=== PATIENT | female | born 1965 | race Caucasian/White ===

== ENCOUNTER 2019-04-27 15:30 | Observation (INO) ==
[2019-04-27 16:11] LABS: Basophils % 0.4 %; Eosinophils # 0.2 K/mcL (0.0-0.6); Hematocrit 44.1 % (35.3-44.9); Immature Granulocytes % 0.3 % (0-4); Lymphocytes # 2.3 K/mcL (0.6-4.6); Lymphocytes % 23.7 %; Mean Corpuscular Hemoglobin 30.5 pg (28.0-33.3); Mean Corpuscular Volume 89.8 fL (83.0-100.0); Mean Platelet Volume 10.7 fL (9.4-12.4); Monocytes # 0.6 K/mcL (0.0-1.3); Monocytes % 6.4 %; Neutrophils # 6.6 K/mcL (1.6-8.9); Platelet Count 240 K/mcL (140-400); Red Blood Count 4.91 M/mcL (3.82-4.97); Red Cell Distribution Width 12.5 % (11.5-14.5); Segmented Neutrophils % 67.2 %; White Blood Count 9.9 K/mcL (4.3-11.1)
--- NOTE | 2019-04-27 16:15 | Emergency Department Note ---
Disposition Clinical Impression: Chest pain Disposition: Admitted As Inpatient Time of Disposition: 17:48 Chest Pain HPI - General Chief Complaint: ED Chest Pain Stated Complaint: chest pain Time Seen by Provider: 04/27/19 15:32 Source: patient, EMS Limitations: no limitations Vital Signs Reviewed: Yes Nursing Notes Reviewed: Yes - History of Present Illness HPI Narrative: Ms. Raines is a 53 yo F with PMH of HTN, CAD, and Takosubo cardiomyopathy, presented the emergency department with retrosternal, left-sided chest pain that is radiating to her jaw and left arm. This patient pain began nearly 2 hours prior to arrival. She states it went to another facility, and they gave her multiple baby aspirins. Associated symptoms include diaphoresis. She was able to ambulate. She does admit to numbness in the left side of her face, and subjective numbness in her arms bilaterally. She denies lightheadedness, dyspnea, cough, abdominal pain, nausea, vomiting, dysuria, or LE edema. She does admit to a history of Takosubo cardiomyopathy and follows up with her cardiology team. Severity scale (1-10): 5 - Related Data Home Medications Medication Instructions Recorded Confirmed Metoprolol [Lopressor] 25 mg PO HS 08/07/16 04/27/19 Multivitamin [Multi-Day Vitamins] 1 each PO DAILY 08/07/16 04/27/19 amLODIPine [Norvasc] 10 mg PO DAILY 08/07/16 04/27/19 hydroCHLOROthiazide 25 mg PO DAILY 08/07/16 04/27/19 [Hydrochlorothiazide] Albuterol Sulfate [Ventolin Hfa] 2 puff IH BID PRN 08/10/16 04/27/19 Benazepril HCl [Lotensin] 20 mg PO DAILY 04/27/19 04/27/19 Cholecalciferol (D-3) [Vitamin D] 1,000 unit PO DAILY 04/27/19 04/27/19 Allergies Allergy/AdvReac Type Severity Reaction Status Date / Time Bee Pollen Allergy Rash Verified 04/22/18 12:37 diphenhydramine Allergy Rash Verified 04/22/18 12:37 [From Benadryl] Erythromycin Base Allergy Rash Verified 04/22/18 12:37 Penicillins Allergy Rash Verified 04/22/18 12:37 Review of Systems: Admits to chest pain, facial and arm numbness, and diaphoresis. Denies lightheadedness, dyspnea, cough, abdominal pain, nausea, vomiting, dysuria, or LE edema. Chest Pain PMH - Past Medical History Medical history: Reports: COPD, coronary artery disease, hypertension, kacy cardial infarction, other Surgical history: Reports: appendectomy, , orthopedic, other (Carpal tunnel), other (Tonsillectomy, lymph node excision, bladder suspension, cardiac catheterization in 2011 with minimal disease) Psychiatric history: Reports: no psych history - Social History Smoking Status: Current every day smoker Alcohol use: Reports: none Drug use: Reports: none Physical Exam GEN: Mild distress, A&O3 HEAD: Atraumatic, normocephalic EYES: Pupils symmetric, sclera white, conjunctiva pink HEART: RRR, normal S1 and S2, no murmurs LUNGS: Clear to auscultation bilaterally, no wheezes, rhonchi, or crackles ABD: Soft, nontender, nondistended, bowel sounds present EXT: No edema noted, pulses 2/4 NEURO: Decreased sensation to left side of face, cooperative with exam, strength equal and symmetric in UE and LE - General Limitations: no limitations Course Vital Signs Temperature 98.2 F 04/27/19 15:35 Pulse Rate 101 04/27/19 15:35 Respiratory Rate 18 04/27/19 15:35 Blood Pressure 176/112 04/27/19 15:35 O2 Sat by Pulse Oximetry 95 04/27/19 15:35 Temperature 98.2 F 04/27/19 15:35 Pulse Rate 101 04/27/19 15:35 Respiratory Rate 18 04/27/19 15:35 Blood Pressure 176/112 04/27/19 15:35 O2 Sat by Pulse Oximetry 97 04/27/19 16:06 Oxygen Delivery Oxygen Delivery Room Air Chest Pain - [facility] Narrative Medical decision making narrative: 53-year-old female with history of cardiac disease presented with chest pain. EKG shows sinus tachycardia, heart rate 101, one PVC, and slight ST depressions in V5 and V6. Troponin is negative. CBC and BMP are normal. Chest x-ray is without any acute findings. Head CT negative. D-dimer was elevated. CTA shows no pulmonary embolism, but does comment on 4.1 cm descending aortic ectasia. Heart score = 4. With her concerning symptoms and history, she will be admitted for continuing observation and management of her chest pain. Discussed the case with Dr. Rice who is accepting of the admission. - Lab Data Lab results reviewed: Yes I reviewed the patient's lab results. Result diagrams: 04/27/19 15:56 04/27/19 15:56 Lab Results 04/27/19 04/27/19 04/27/19 Range/Units 15:56 15:56 15:56 WBC 9.9 (4.3-11.1) K/mcL RBC 4.91 (3.82-4.97) M/mcL Hgb 15.0 (11.5-15.4) g/dL Hct 44.1 (35.3-44.9) % MCV 89.8 (83.0-100.0) fL MCH 30.5 (28.0-33.3) pg MCHC 34.0 (31.6-35.5) g/dL RDW 12.5 (11.5-14.5) % Plt Count 240 (140-400) K/mcL MPV 10.7 (9.4-12.4) fL Immature Gran % 0.3 (0-4) % Seg Neutrophils % 67.2 % Lymphocytes % 23.7 % Monocytes % 6.4 % Eosinophils % 2.0 % Basophils % 0.4 % Neutrophils # 6.6 (1.6-8.9) K/mcL Lymphocytes # 2.3 (0.6-4.6) K/mcL Monocytes # 0.6 (0.0-1.3) K/mcL Eosinophils # 0.2 (0.0-0.6) K/mcL Basophils # 0.0 (0.0-0.2) K/mcL PT 12.1 (9.4-12.1) Seconds INR 1.1 APTT 31.3 (26.0-36.0) Seconds D-Dimer 1070 H (0-500) ng/mLFEU Sodium 138 (136-145) mEq/L Potassium 3.9 (3.5-5.1) mEq/L Chloride 104 (98-107) mEq/L Carbon Dioxide 26 (23-29) mEq/L BUN 10 (6-20) mg/dL Creatinine 0.67 (0.60-1.20) mg/dL Est GFR ( Amer) > 60 (> 60) Est GFR (Non-Af Amer) > 60 (> 60) BUN/Creatinine Ratio 15 (6-26) Glucose 348 H (70-105) mg/dL Calculated Osmolality 299 (280-300) Calcium 9.3 (8.6-10.3) mg/dL Troponin I < 0.03 (< 0.04) ng/mL - Radiology Data Radiology results reviewed: Yes I reviewed the patient's radiology results. Heart Score - Score History: Moderately Suspicious EKG: Non Specific repolarisation Disturbance Age: 45-65 Risk Factors: 1-2 risk factors Troponin: Less than normal limit HEART Score Total: 4 Attestation Statement - Attestation Attestation: I, Colin Hartley, examined this patient and my medical decision-making was reviewed with the [employer]/PA/Advanced Practice Nurse/Resident Physician. I agree with the documented findings, disposition and treatment plan as described except to the extent set forth below. 53-year-old male presents emergency Department with concerns of chest pain. Patient states pain is in her left chest and radiates to her left jaw and left upper extremity. Patient reports a history of takasubo cardiomyopathy. Patient denies syncopal event. Initial troponin was negative. EKG did not show evidence of STEMI.I reviewed the EKG with the resident and agree with the interpretation. CTA of the chest did not show evidence of acute PE however did show aortic root ectasia. Patient will be admitted to the hospitalist for further care and evaluation.
[2019-04-27 16:19] LABS: INR 1.1; Prothrombin Time 12.1 Seconds (9.4-12.1)
[2019-04-27 16:22] LABS: Activated Partial Thrombo Time 31.3 Seconds (26.0-36.0)
[2019-04-27 16:32] LABS: BUN/Creatinine Ratio 15 (6-26); Blood Urea Nitrogen 10 mg/dL (6-20); Calcium 9.3 mg/dL (8.6-10.3); Carbon Dioxide 26 mEq/L (23-29); Chloride 104 mEq/L (98-107); Glucose 348 mg/dL (70-105); Osmolality,Calculated 299 (280-300); Potassium 3.9 mEq/L (3.5-5.1); Sodium 138 mEq/L (136-145); eGFR For African Americans > 60 (> 60); eGFR For Non-African Americans > 60 (> 60)
[2019-04-27 16:33] LABS: Troponin I < 0.03 ng/mL (< 0.04)
[2019-04-27] MEDS ORDERED: Isovue-370 500 ML BOTTLE IVP ONE (16:57)
[2019-04-27] MEDS ORDERED: Acetaminophen 325 MG TABLET PO PRN (18:10)
[2019-04-27] MEDS ORDERED: MOM Conc 10 ML UD.LIQ PO PRN (18:10)
[2019-04-27] MEDS ORDERED: Naloxone 0.4 MG/ML INJ IVP PRN (18:10)
[2019-04-27] MEDS ORDERED: traMADol 50 MG TABLET PO PRN (18:10)
[2019-04-27] MEDS ORDERED: Mag Hydrox/Al Hydrox/Simeth 30 ML UDC PO PRN (18:10)
[2019-04-27] MEDS ORDERED: Ondansetron 4 MG/2 ML VIAL IVP PRN (18:10)
[2019-04-27] MEDS ORDERED: Nicotine 21 MG PATCH.TD24 TD PRN (18:14)
[2019-04-27] MEDS ORDERED: Albuterol 2.5 MG/3 ML NEBULIZER IH PRN (18:14)
[2019-04-27] MEDS ORDERED: D5% in Water 1,000 ML IVC PRN (18:19)
[2019-04-27] MEDS ORDERED: *HR* Dextrose 50 % in Water (Syg) 50 ML SYRINGE IVP PRN (18:19)
[2019-04-27] MEDS ORDERED: Dextrose Gel 15 GM/37.5 ML TUBE PO PRN ×2 (18:19)
[2019-04-27 18:28] LABS: C-Reactive Protein 37 mg/L (Less than 10)
--- NOTE | 2019-04-27 18:43 | Internal Med History&Physical ---
Date of Encounter: 04/27/19 Time of Encounter: 18:15 Internal Medicine - H&P: HPI Chief complaint: chest pain Admitted From: Emergency Dept Plans for Post Hospital Care: Home History of present illness: Ms. Raines is a 53 year old female with hx of Takosubo cardiomyopathy and HTN presented to ED with L side chest pain. Ms Raines has a prior hx of Takosubo cardiomyopathy and states she follows with [facility] Mccoy and Dr. Mas but has not seen them in "a while." She is unaware of whether her EF improved. She has had intermittent chest pain in the past but says she has nitro. This AM she was holding a baby and developed substernal chest discomfort radiating to L side of chest. Some dyspnea recently and she has been wheezing. Smokes about half pack of cigarettes daily. No fever or chills. No GI symptoms. When pain first came on she took some vinegar and apple juice and was seen at and given ASA. Symptoms have improved. She also stated that she has noted some discomfort and numbness on lower part of L side of face. Does not hurt to chew but does have some discomfort with touching face. Both her arms were also numb feeling earlier and her said she did not appear to be walking correctly. This has resolved as well. She was evaluated in ED and had negative troponin, increased D dimer, increased blood sugar. CTA chest and CT head negative. EKG with subtle ST changes later ally. Past Med Surg Social Fam HX - Past Medical History Source: patient Medical history: COPD, coronary artery disease, hypertension, myocardial infarction, other Psychiatric history: no psych history - Past Surgical History Surgical History: appendectomy, , orthopedic, other (Carpal tunnel), other (Tonsillectomy, lymph node excision, bladder suspension, cardiac catheterization in 2010 with minimal disease) Additional surgical history: CARDIAC CATH X2, BENIGN TUMOR REMOVED FROM RT GROIN. BLADDER TUCK. CARPAL TUNEL. NASAL BONE RECONSTRUCTION. FX LEG - Social History Smoking Status: Current every day smoker Smokeless Tobacco Status: No Alcohol use: none Drug use: none Current living situation: With Family Activity Level: Independent ambulation - Family History Mother Hx Family Cardiac Disorders: Yes (HTN) Hx Family Musculoskeletal Disorders: Yes (DM) Internal Medicine - H&P: Meds Metoprolol [Lopressor] 25 mg PO HS 08/07/16 [History] Multivitamin [Multi-Day Vitamins] 1 each PO DAILY 08/07/16 [History] amLODIPine [Norvasc] 10 mg PO DAILY 08/07/16 [History] hydroCHLOROthiazide [Hydrochlorothiazide] 25 mg PO DAILY 08/07/16 [History] Albuterol Sulfate [Ventolin Hfa] 2 puff IH BID PRN 08/10/16 [History] Benazepril HCl [Lotensin] 20 mg PO DAILY 04/27/19 [History] Cholecalciferol (D-3) [Vitamin D] 1,000 unit PO DAILY 04/27/19 [History] Allergy/AdvReac Type Severity Reaction Status Date / Time Bee Pollen Allergy Rash Verified 04/22/18 12:37 diphenhydramine Allergy Rash Verified 04/22/18 12:37 [From Benadryl] Erythromycin Base Allergy Rash Verified 04/22/18 12:37 Penicillins Allergy Rash Verified 04/22/18 12:37 All Systems PM: A 10-system review of systems was performed and is negative for pertinent findings except as documented above in the HPI. - Constitutional Constitutional: fatigue, no malaise - EENT Eyes: no change in vision, no loss of vision Ears: no decreased hearing Nose, mouth and throat: no dry mouth, no sinus pain - Cardiovascular Cardiovascular ROS IM: chest pain, diaphoresis, dyspnea, dyspnea on exertion, no edema, no lightheadedness, no orthopnea, no palpitations - Respiratory Respiratory: dyspnea, dyspnea on exertion, wheezing, no cough, no pain on inspiration, no chest congestion - Gastrointestinal Gastrointestinal: no abdominal pain, no melena, no nausea, no vomiting - Genitourinary Genitourinary: no dysuria, no urinary frequency, no urinary urgency - Musculoskeletal Musculoskeletal ROS IM: no arthralgias, no myalgias - Integumentary Integumentary IM: no rash - Neurological Neurological ROS: abnormal gait, numbness, paresthesias, weakness, no confusion, no disequilibrium, no loss of vision - Endocrine Endocrine IM: no excessive sweating - Hematologic/Lymphatic Hematologic/Lymphatic: no easy bleeding - Allergic/Immunologic Allergic/Immunologic: no seasonal rhinorrhea - Constitutional Vitals: Temp Pulse Resp BP Pulse Ox 98.2 F 78 18 144/92 97 04/27/19 15:35 04/27/19 17:42 04/27/19 17:42 04/27/19 17:42 04/27/19 17:42 General appearance: Present: A&O X 3, pleasant, answers questions appropriately Exam: See below - Head Head exam: Present: atraumatic, normocephalic - Eye Eye exam: Present: EOMI, conjuntiva pink - ENT ENT exam: Present: mucous membranes moist - Neck Neck exam general surgery: Present: normal inspection, supple. Absent: nuchal rigidity - Respiratory Respiratory exam: Present: rhonchi, wheezes. Absent: rales - Cardiovascular Cardiovascular exam: Present: RRR. Absent: systolic murmur, tachycardia - GI/Abdominal GI/Abdominal exam: Present: normal bowel sounds, soft. Absent: tenderness - Extremities Exam Extremities exam: Present: pedal edema, warm. Absent: tenderness - Neurological Exam Neurological exam: Present: alert, oriented X3 Additional comments: Strength and sensation appear to be intact at this time. - Skin Skin exam: Present: dry, warm. Absent: rash Internal Med - H&P Results - Labs CBC & Chem 7: 04/27/19 15:56 04/27/19 15:56 Labs: Short CBC 04/27/19 Range/Units 15:56 WBC 9.9 (4.3-11.1) K/mcL Hgb 15.0 (11.5-15.4) g/dL Hct 44.1 (35.3-44.9) % Plt Count 240 (140-400) K/mcL Neutrophils # 6.6 (1.6-8.9) K/mcL BMP 04/27/19 15:56 Sodium 138 Potassium 3.9 Chloride 104 Carbon Dioxide 26 BUN 10 Creatinine 0.67 Glucose 348 H Calcium 9.3 Cardiac Enzymes 04/27/19 Range/Units 15:56 Troponin I < 0.03 (< 0.04) ng/mL - EKG Data -: EKG Interpreted by Myself EKG shows normal: sinus rhythm Rate: normal - EKG Data Prior EKG available for review: yes Interpretation IM: suggestive of ischemia EKG comments: 04/27/19 18:[address] changes V5 and V6 compared to prior in 2010. - Impressions ITS Impressions Chest X-Ray 04/27/19 15:57 IMPRESSION: No acute process. D/ / Cl Dillon MD / Cl Dillon MD Interpreting Provider: Cl Dillon MD Head CT 04/27/19 15:59 IMPRESSION: No acute intracranial abnormality. D/ / Cl Dillon MD / Cl Dillon MD Interpreting Provider: Cl Dillon MD Chest CTA 04/27/19 16:57 IMPRESSION: 1. No acute pulmonary artery embolism. 2. Ascending thoracic aortic ectasia. D/ / 04/27/2019 17:22:39 Cl Dillon MD / earnold Interpreting Provider: Cl Dillon MD - Assessment and Plan (1) Chest pain Current Visit: Yes Status: Suspected Assessment and plan: Pt presented to ED with acute onset of chest pain today. She took vinegar and apple juice as well as ASA with some improvement. Place in observation. Serial troponin No heparin at this time. Check echo in AM Check lipid panel. Qualifiers: Chest pain type: chest pain due to myocardial ischemia Ischemic chest pain type: other angina pectoris type Qualified Code(s): I20.8 - Other forms of angina pectoris (2) COPD (chronic obstructive pulmonary disease) Current Visit: Yes Status: Acute Assessment and plan: Pt noted to have significant wheezing on exam with mild dyspnea. Will start aerosols and steroids as well as azithromycin. Qualifiers: COPD type: COPD with acute exacerbation Qualified Code(s): J44.1 - Chronic obstructive pulmonary disease with (acute) exacerbation (3) TIA (transient ischemic attack) Current Visit: Yes Status: Suspected Assessment and plan: Pt had complaints of numbness L side of face and arms. Appears to have resolved. Check ESR and CRP. CT head negative. Neuro checks. ASA Echo ordered. Consider further stroke work up. (4) HTN (hypertension) Current Visit: Yes Status: Chronic Assessment and plan: Pt with hx of HTN and multiple BP meds. Initially elevated in ED but improved. Continue home meds. Qualifiers: Hypertension type: essential hypertension Qualified Code(s): I10 - Essential (primary) hypertension (5) Takotsubo cardiomyopathy Current Visit: Yes Status: Resolved Assessment and plan: Prior hx. Check echo. (6) Tobacco abuse Current Visit: Yes Status: Chronic Assessment and plan: Cessation counselling - Time Spent With Patient Total time spent is greater than 50% in coordination of care (as documented) at patient's floor/unit and/or counseling patient:
[2019-04-27 19:56] LABS: Estimated Average Glucose 220 mg/dl
[2019-04-27] MEDS: MethylPREDNISolone 40 MG/ML VIAL IVP SCH ×2 (20:01→23:59)
[2019-04-27] MEDS: Azithromycin 500 MG in 0.9 % Sodium Chloride 250 ML IVPB SCH (20:01)
[2019-04-27] MEDS: Insulin LISPRO 300 UNITS/3 ML VIAL SQ SCH (20:01)
[2019-04-27] MEDS: Ipratropium/Albuterol Neb 3 ML IH SCH (22:13)
[2019-04-28 02:23] LABS: Hematocrit 45.1 % (35.3-44.9); Hemoglobin 15.3 g/dL (11.5-15.4); Mean Corpuscular HGB Conc 33.9 g/dL (31.6-35.5); Mean Corpuscular Volume 91.3 fL (83.0-100.0); Mean Platelet Volume 10.6 fL (9.4-12.4); Platelet Count 258 K/mcL (140-400); Red Blood Count 4.94 M/mcL (3.82-4.97); Red Cell Distribution Width 12.6 % (11.5-14.5); White Blood Count 9.1 K/mcL (4.3-11.1)
[2019-04-28 02:43] LABS: BUN/Creatinine Ratio 16 (6-26); Blood Urea Nitrogen 9 mg/dL (6-20); Calcium 9.1 mg/dL (8.6-10.3); Carbon Dioxide 25 mEq/L (23-29); Chloride 105 mEq/L (98-107); Chol/HDL Ratio 6.4 (0-4.9); Cholesterol 179 mg/dL (< 200); Glucose 366 mg/dL (70-105); HDL Cholesterol 28 mg/dL (40-59); LDL Cholesterol,Calculated 127 mg/dL (0-99); Magnesium 2.1 mg/dL (1.6-2.6); Osmolality,Calculated 298 (280-300); Sodium 137 mEq/L (136-145); Triglycerides 120 mg/dL (< 150); eGFR For African Americans > 60 (> 60); eGFR For Non-African Americans > 60 (> 60)
[2019-04-28] MEDS: Ipratropium/Albuterol Neb 3 ML IH SCH ×4 (04:16→22:59)
[2019-04-28] MEDS: MethylPREDNISolone 40 MG/ML VIAL IVP SCH ×3 (06:17→17:10)
[2019-04-28] MEDS: hydroCHLOROthiazide 25 MG TABLET PO SCH (09:22)
[2019-04-28] MEDS: amLODIPine 5 MG TABLET PO SCH (09:23)
[2019-04-28] MEDS: Lisinopril 20 MG TABLET PO SCH (09:23)
[2019-04-28] MEDS: Insulin LISPRO 300 UNITS/3 ML VIAL SQ SCH ×4 (09:23→21:09)
--- NOTE | 2019-04-28 09:53 | Internal Med Progress Note ---
<Mekhi Mishra - Last Filed: 04/28/19 14:55> Hospitalist Progress Note - Encounter Date of Encounter: 04/28/19 - Exam Vitals: Temp Pulse Resp BP Pulse Ox 98.1 F 108 20 120/78 96 04/28/19 12:17 04/28/19 12:17 04/28/19 12:17 04/28/19 12:17 04/28/19 12:17 - Assessment and Plan (1) Chest pain Current Visit: Yes Status: Suspected (2) COPD (chronic obstructive pulmonary disease) Current Visit: Yes Status: Suspected (3) TIA (transient ischemic attack) Current Visit: Yes Status: Suspected (4) HTN (hypertension) Current Visit: Yes Status: Chronic (5) Takotsubo cardiomyopathy Current Visit: Yes Status: Resolved (6) Tobacco abuse Current Visit: Yes Status: Chronic - Time Spent with Patient Total time spent is greater than 50% in coordination of care (as documented) at patient's floor/unit and/or counseling patient: Internal Medicine: Result - Labs CBC & Chem 7: 04/28/19 01:51 04/28/19 01:51 Labs: Short CBC 04/27/19 04/28/19 Range/Units 15:56 01:51 WBC 9.9 9.1 (4.3-11.1) K/mcL Hgb 15.0 15.3 (11.5-15.4) g/dL Hct 44.1 45.1 H (35.3-44.9) % Plt Count 240 258 (140-400) K/mcL Neutrophils # 6.6 (1.6-8.9) K/mcL BMP 04/27/19 04/28/19 15:56 01:51 Sodium 138 137 Potassium 3.9 4.0 Chloride 104 105 Carbon Dioxide 26 25 BUN 10 9 Creatinine 0.67 0.55 L Glucose 348 H 366 H Calcium 9.3 9.1 Cardiac Enzymes 04/27/19 04/27/19 04/28/19 Range/Units 15:56 18:31 00:17 Troponin I < 0.03 < 0.03 0.04 H* (< 0.04) ng/mL 04/28/19 04/28/19 Range/Units 06:17 12:01 Troponin I 0.05 H* 0.06 H* (< 0.04) ng/mL - ABG Interpretation ABG results: PT/INR, D-dimer PT 12.1 Seconds (9.4-12.1) 04/27/19 15:56 D-Dimer 1070 ng/mLFEU (0-500) H 04/27/19 15:56 - Impressions Impressions Chest X-Ray 04/27/19 15:57 IMPRESSION: No acute process. D/ / Cl Dillon MD / Cl Dillon MD Interpreting Provider: Cl Dillon MD Head CT 04/27/19 15:59 IMPRESSION: No acute intracranial abnormality. D/ / Cl Dillon MD / Cl Dillon MD Interpreting Provider: Cl Dillon MD Chest CTA 04/27/19 16:57 IMPRESSION: 1. No acute pulmonary artery embolism. 2. Ascending thoracic aortic ectasia. D/ / 04/27/2019 17:22:39 Cl Dillon MD / earnold Interpreting Provider: Cl Dillon MD Consult Discharge Plan - Plan Referrals: NONE,PCP [Primary Care Provider] - - Attending Attestation I examined this patient and my medical decision-making was reviewed with the Resident Physician on 04/28/19. I agree with the documented findings, disposition and treatment plan as described except to the extent set forth below. Ms Raines is currently admitted for acute exac COPD and chest pain. She remains moderate to high risk due to potential for worsening clinical status. Ms Raines is feeling somewhat better today. No fever or chills. No CP at this time. Less wheezing. Face with minimal numbness now. No speech issues (now sa ys she had issues yesterday). No GI issues. Exam Alert. Comfortable. Mucus membranes dry. NC. EOMI. Neck supple. Heart reg - tachy. Less wheeze today. Abd soft. No edema. No rash. Moves a ll equally. Plan: Echo and further cardiac eval (slight increase in troponin - ? demand versus ACS) MRI head due to persistent facial numbness Decrease steroids <Gary Noonan S - Last Filed: 04/28/19 16:20> Hospitalist Progress Note - Encounter Date of Encounter: 04/28/19 Time of Encounter: 09:50 - Subjective Interval History: 53-year-old female with past medical history significant for takotsubo cardiomyopathy and 2 prior left heart catheterizations presented with left- sided chest pain, as well as transient numbness of her face and arms, as well as comments by her that she did not appear to be walking right. CT of the head CTA of the chest EKG and troponin were negative in the emergency room, however d-dimer was elevated, and she was admitted to her service for chest pain workup. At this time she denies any shortness of breath, chest pain, nausea, vomiting, abdominal pain, weakness, numbness, diarrhea, constipation, t rouble urinating. She reports significant psychosocial stressors in her life, as they are assistin g caring for her grandchild. She reports that rather than smoking in the house, she is going outside and smoking 3-4 cigarettes at a time. She also states that she does have cardiology follow-up as an outpatient, though she does not remember the last time she saw them. Her main concern at this time is the transient left-sided facial numbness associated with difficulty speaking that was present on admission. This has since resolved, and she denies any ongoing numbness or weakness - Exam Vitals: Temp Pulse Resp BP Pulse Ox 97.7 F 96 18 123/79 96 04/28/19 08:21 04/28/19 08:21 04/28/19 08:21 04/28/19 08:21 04/28/19 08:21 Exam: Gen: Awake and alert, no acute distress, well-nourished, well kempt Head: Normocephalic, atraumatic Eyes: EOMI, no scleral icterus ENT: Mucous membranes moist, trachea midline CV: S1-S2 present, regular rhythm, no tachycardia/bradycardia, 1/6 systolic murmur heard at upper R sternal border, no rubs or gallops Pulm: diffuse faint wheezes, not tachypneic, no respiratory distress, no increased work of breathing Abd: Soft, nontender to palpation, obese, nondistended, no rebound or guarding. Bowel sounds present EXT: Grossly intact motor strength in all 4 extremities, no lower extremity edema, no distal cyanosis or pallor Skin: Warm, dry, intacct, no rashes or lesions noted Neuro: Cranial nerves II-XII grossly intact, no focal nurologic deficits Psych: normal mood and affect, Answers questions with intact judgement, appropriate insight, and linear thought - Assessment and Plan (1) Chest pain Current Visit: Yes Status: Suspected Assessment and Plan: Last 3 troponins have been: * 00:17 - 0.04 * 06:17 - 0.05 * 12:01 - 0.06 slow steady rise in the absence of any chest pain or dyspnea may represent demand ischemia, will initiate 2L O2 by NC and maintain until we can assess more repeat troponin measurements repeat troponin at 18:00, 00:00, 06:00 consult will be entered to cardiology service for evaluation for possible stress testing, echo or catheterization. continue to monitor vital signs Nitroglycerine PRN for chest pain/sob UPDATE: Reexamination at 1400 found patient complaining of mild chest heaviness and palpitations. She remains on telemetry monitoring without any runs of V. tach or A. fib. Continued telemetry monitoring, by mouth aspirin and oxygen as above, PRN nitroglycerin (2) TIA (transient ischemic attack) Current Visit: Yes Status: Suspected Assessment and Plan: MRIs of the head and neck have been ordered to assess for possibility of small CVA (3) COPD (chronic obstructive pulmonary disease) Current Visit: Yes Status: Suspected Assessment and Plan: Patient with faint wheezing on exam, no subjective complaint of shortness of breath Continue nebulizer treatments Continue to monitor possible cardiac source of any dyspnea that arises (4) HTN (hypertension) Current Visit: Yes Status: Chronic Assessment and Plan: Patient's blood pressure is well-controlled, however she remains tachycardic. This may be secondary to beta agonists given for her COPD, 12.5 mg PO metoprolol given now But just 25 mg metoprolol to twice a day dosing (5) Takotsubo cardiomyopathy Current Visit: Yes Status: Resolved Assessment and Plan: Plan as per chest pain assessment and plan above (6) Hyperglycemia Current Visit: Yes Status: Acute Assessment and Plan: Patient's A1c resulted today at a level of 9.3, correlating to an estimated mean plasma glucose of 220. Patient is a good candidate 3 started on metformin when she is discharged from the hospital. We will continue sliding scale insulin while she is here, and monitor daily BMPs - Time Spent with Patient Total time spent is greater than 50% in coordination of care (as documented) at patient's floor/unit and/or counseling patient: Internal Medicine: Result - Labs CBC & Chem 7: 04/28/19 01:51 04/28/19 01:51 Labs: Short CBC 04/27/19 04/28/19 Range/Units 15:56 01:51 WBC 9.9 9.1 (4.3-11.1) K/mcL Hgb 15.0 15.3 (11.5-15.4) g/dL Hct 44.1 45.1 H (35.3-44.9) % Plt Count 240 258 (140-400) K/mcL Neutrophils # 6.6 (1.6-8.9) K/mcL BMP 04/27/19 04/28/19 15:56 01:51 Sodium 138 137 Potassium 3.9 4.0 Chloride 104 105 Carbon Dioxide 26 25 BUN 10 9 Creatinine 0.67 0.55 L Glucose 348 H 366 H Calcium 9.3 9.1 Cardiac Enzymes 04/27/19 04/27/19 04/28/19 Range/Units 15:56 18:31 00:17 Troponin I < 0.03 < 0.03 0.04 H* (< 0.04) ng/mL 04/28/19 Range/Units 06:17 Troponin I 0.05 H* (< 0.04) ng/mL - ABG Interpretation ABG results: PT/INR, D-dimer PT 12.1 Seconds (9.4-12.1) 04/27/19 15:56 D-Dimer 1070 ng/mLFEU (0-500) H 04/27/19 15:56 - Impressions Impressions Chest X-Ray 04/27/19 15:57 IMPRESSION: No acute process. D/ / Cl Dillon MD / Cl Dillon MD Interpreting Provider: Cl Dillon MD Head CT 04/27/19 15:59 IMPRESSION: No acute intracranial abnormality. D/ / Cl Dillon MD / Cl Dillon MD Interpreting Provider: Cl Dillon MD Chest CTA 04/27/19 16:57 IMPRESSION: 1. No acute pulmonary artery embolism. 2. Ascending thoracic aortic ectasia. D/ / 04/27/2019 17:22:39 Cl Dillon MD / earnold Interpreting Provider: Cl Dillon MD <Mekhi Mishra A - Last Filed: 04/28/19 14:55> (1) Chest pain Qualifiers: Chest pain type: chest pain due to myocardial ischemia Ischemic chest pain type: other angina pectoris type Qualified Code(s): I20.8 - Other forms of angina pectoris (2) COPD (chronic obstructive pulmonary disease) Qualifiers: COPD type: COPD with acute exacerbation Qualified Code(s): J44.1 - Chronic obstructive pulmonary disease with (acute) exacerbation (4) HTN (hypertension) Qualifiers: Hypertension type: essential hypertension Qualified Code(s): I10 - Essential (primary) hypertension <Gary Noonan S - Last Filed: 04/28/19 16:20> (1) Chest pain Qualifiers: Chest pain type: chest pain due to myocardial ischemia Ischemic chest pain type: other angina pectoris type Qualified Code(s): I20.8 - Other forms of a ngina pectoris (3) COPD (chronic obstructive pulmonary disease) Qualifiers: COPD type: COPD with acute exacerbation Qualified Code(s): J44.1 - Chronic obstructive pulmonary disease with (acute) exacerbation (4) HTN (hypertension) Qualifiers: Hypertension type: essential hypertension Qualified Code(s): I10 - Essential (primary) hypertension
[2019-04-28 12:43] LABS: Troponin I 0.06 ng/mL (< 0.04)
[2019-04-28] MEDS ORDERED: Aspirin 325 MG TABLET PO STA (13:15)
[2019-04-28] MEDS ORDERED: Nitroglycerin 0.4 MG TAB.SUBL SL PRN (13:36)
[2019-04-28] MEDS ORDERED: Gadolinium Contrast Agent (WT Based) IV PRN (14:57)
[2019-04-28] MEDS: Azithromycin 500 MG in 0.9 % Sodium Chloride 250 ML IVPB SCH (17:10)
[2019-04-28] MEDS ORDERED: Insulin Human Regular 10 UNIT in 0.9 % Sodium Chloride 10 ML IV ONE (22:32)
[2019-04-29 01:37] LABS: Basophils % 0.1 %; Hematocrit 42.8 % (35.3-44.9); Hemoglobin 14.4 g/dL (11.5-15.4); Immature Granulocytes % 0.6 % (0-4); Lymphocytes # 1.5 K/mcL (0.6-4.6); Lymphocytes % 7.4 %; Mean Corpuscular HGB Conc 33.6 g/dL (31.6-35.5); Mean Corpuscular Hemoglobin 30.3 pg (28.0-33.3); Mean Corpuscular Volume 89.9 fL (83.0-100.0); Mean Platelet Volume 11.1 fL (9.4-12.4); Monocytes # 0.7 K/mcL (0.0-1.3); Monocytes % 3.6 %; Platelet Count 272 K/mcL (140-400); Red Blood Count 4.76 M/mcL (3.82-4.97); Red Cell Distribution Width 12.5 % (11.5-14.5); Segmented Neutrophils % 88.3 %
[2019-04-29 01:44] LABS: Neutrophils # 18.1 K/mcL (1.6-8.9); White Blood Count 20.5 K/mcL (4.3-11.1)
[2019-04-29 02:01] LABS: BUN/Creatinine Ratio 34 (6-26); Blood Urea Nitrogen 22 mg/dL (6-20); Calcium 9.4 mg/dL (8.6-10.3); Carbon Dioxide 22 mEq/L (23-29); Chloride 103 mEq/L (98-107); Glucose 282 mg/dL (70-105); Osmolality,Calculated 298 (280-300); Potassium 3.6 mEq/L (3.5-5.1); Sodium 137 mEq/L (136-145); eGFR For African Americans > 60 (> 60); eGFR For Non-African Americans > 60 (> 60)
[2019-04-29] MEDS ORDERED: Insulin Human Regular 10 UNIT in 0.9 % Sodium Chloride 10 ML IV ONE (03:54)
[2019-04-29] MEDS: Ipratropium/Albuterol Neb 3 ML IH SCH ×2 (03:59→10:47)
[2019-04-29] MEDS: MethylPREDNISolone 40 MG/ML VIAL IVP SCH ×2 (05:32→17:23)
[2019-04-29 06:12] LABS: Bilirubin,Urine Negative (Negative); Blood,Urine Negative (Negative); Clarity,Urine Clear (Clear); Color,Urine Yellow (Yellow); Glucose,Urine (UA) 500 mg/dL (Normal); Ketones,Urine Trace mg/dL (Negative); Leukocyte Esterase,Urine Negative (Negative); Nitrite,Urine Negative (Negative); Protein,Urine Trace mg/dL (Neg-Trace); Specific Gravity,Urine > 1.030 (1.010-1.025); Urobilinogen,Urine Normal (Normal)
--- NOTE | 2019-04-29 07:53 | Internal Med Progress Note ---
Hospitalist Progress Note - Encounter Date of Encounter: 04/29/19 Time of Encounter: 07:53 - Subjective Interval History: Ms. Raines is a 53 y/o F who presented on 04/27 with the complaint of chest pain and left sided facial numbness and left arm numbness. She states that she feels better and no longer complains of numbness but still has pressure in her chest with some palpitations intermittently. Pt. complains of wheezing, coughing, and dizziness with breathing treatments; pt. states she has orthopnea intermittently. Pt. denies nausea/vomiting, fevers or chills, numbness or tingling elsewhere in her body, no dysuria or problems with bowel movements. - Exam Vitals: Temp Pulse Resp BP Pulse Ox 97.9 F 87 16 127/82 95 04/29/19 07:41 04/29/19 07:41 04/29/19 07:41 04/29/19 07:41 04/29/19 07:41 Exam: Gen: AAOx3, no acute distress Head: Normocephalic, atraumatic Eyes: Cardio: S1-S2 present, regular rhythm, no tachycardia/bradycardia, 1/6 systolic murmur heard at upper R sternal border, no rubs or gallops Pulm: diffuse faint wheezes, some SOB during questioning, no respiratory distress Abd: Soft, nontender to palpation, nondistended, no rebound or guarding. Bowel sounds present EXT: Grossly intact motor strength in all 4 extremities, no lower extremity edema, no distal cyanosis or pallor Skin: Warm, dry, no rashes or lesions noted Neuro: no focal neurologic deficits - Assessment and Plan (1) Chest pain Current Visit: Yes Status: Suspected Assessment and Plan: Last 3 troponins have been: 18:08 - 0.05 00:41 - 0.06 05:53 - 0.05 slow steady rise in the absence of any chest pain or dyspnea may represent dem and ischemia, will initiate 2L O2 by NC and maintain until we can assess more repeat troponin measurements repeat troponin at consult will be entered to cardiology service for evaluation for possible stress testing, echo or catheterization. continue to monitor vital signs Nitroglycerine PRN for chest pain/sob Continued telemetry monitoring, (2) TIA (transient ischemic attack) Current Visit: Yes Status: Suspected Assessment and Plan: MRIs of the head and neck have been ordered to assess for possibility of small CVA Will continue to monitor for neurological changes. (3) COPD (chronic obstructive pulmonary disease) Current Visit: Yes Status: Suspected Assessment and Plan: Patient complains of some SOB, coughing, and wheezing. Patient with faint wheezing on exam and SOB when answering questions. Patient is currently receiving albuterol treatments. Breathing treatments to continue Continue to monitor possible cardiac source of any dyspnea that arises (4) HTN (hypertension) Current Visit: Yes Status: Chronic Assessment and Plan: Patient's blood pressure is well-controlled, however she remains tachycardic. This may be secondary to beta agonists given for her COPD, 12.5 mg PO metoprolol given yesterday But just 25 mg metoprolol to twice a day dosing (5) Takotsubo cardiomyopathy Current Visit: Yes Status: Resolved Assessment and Plan: Plan as per chest pain assessment and plan above (6) Hyperglycemia Current Visit: Yes Status: Acute Assessment and Plan: Patient's A1c resulted on 04/27 at a level of 9.3, correlating to an estimated mean plasma glucose of 220. Patient is a good candidate 3 started on metformin when she is discharged from the hospital. We will continue sliding scale insulin while she is here, and monitor daily BMPs - Time Spent with Patient Total time spent is greater than 50% in coordination of care (as documented) at patient's floor/unit and/or counseling patient: Internal Medicine: Result - Labs CBC & Chem 7: 04/29/19 00:41 04/29/19 00:41 Labs: Short CBC 04/29/19 Range/Units 00:41 WBC 20.5 H D (4.3-11.1) K/mcL Hgb 14.4 (11.5-15.4) g/dL Hct 42.8 (35.3-44.9) % Plt Count 272 (140-400) K/mcL Neutrophils # 18.1 H (1.6-8.9) K/mcL BMP 04/29/19 00:41 Sodium 137 Potassium 3.6 Chloride 103 Carbon Dioxide 22 L BUN 22 H Creatinine 0.65 Glucose 282 H Calcium 9.4 Cardiac Enzymes 04/28/19 04/28/19 04/29/19 Range/Units 12:01 18:08 00:41 Troponin I 0.06 H* 0.05 H* 0.06 H* (< 0.04) ng/mL 04/29/19 Range/Units 05:53 Troponin I 0.05 H* (< 0.04) ng/mL Urine 04/29/19 Range/Units 05:07 Urine Color Yellow (Yellow) Urine Clarity Clear (Clear) Urine pH 5.0 (5.0-8.0) pH Units Ur Specific [place] > 1.030 H (1.010-1.025) Urine Protein Trace (Neg-Trace) mg/dL Urine Glucose (UA) 500 H (Normal) mg/dL - ABG Interpretation ABG results: PT/INR, D-dimer PT 12.1 Seconds (9.4-12.1) 04/27/19 15:56 D-Dimer 1070 ng/mLFEU (0-500) H 04/27/19 15:56 Consult Discharge Plan - Plan Referrals: NONE,PCP [Primary Care Provider] - (1) Chest pain Qualifiers: Chest pain type: chest pain due to myocardial ischemia Ischemic chest pain type: other angina pectoris type Qualified Code(s): I20.8 - Other forms of angina pectoris (3) COPD (chronic obstructive pulmonary disease) Qualifiers: COPD type: COPD with acute exacerbation Qualified Code(s): J44.1 - Chronic obstructive pulmonary disease with (acute) exacerbation (4) HTN (hypertension) Qualifiers: Hypertension type: essential hypertension Qualified Code(s): I10 - Essential (primary) hypertension
[2019-04-29] MEDS: hydroCHLOROthiazide 25 MG TABLET PO SCH (08:27)
[2019-04-29] MEDS: Insulin LISPRO 300 UNITS/3 ML VIAL SQ SCH ×3 (08:27→17:23)
[2019-04-29] MEDS: amLODIPine 5 MG TABLET PO SCH (08:27)
[2019-04-29] MEDS: Lisinopril 20 MG TABLET PO SCH (08:27)
--- NOTE | 2019-04-29 08:31 | Cardiology Consult Note ---
<Madison Mak - Last Filed: 04/29/19 15:08> Date of Encounter: 04/29/19 Time of Encounter: 12:40 Assessment and Plan (1) Chest pain Current Visit: Yes Status: Acute Patient has been experiencing intermittent chest heaviness since 04/27 with constant mildly elevated troponins x6, ranging between 0.04 and 0.06. -Echocardiogram today showed LVEF 60%, asymmetric septal hypertrophy without LVOT obstruction. Mild LV diastolic dysfunction. There is moderate mitral annular calcification without mitral stenosis. There is no evidence of pulmonary HTN. -Due to patient's neurological status and recent MRA result, we are not comfortable performing stress test without clearance from Neurology. -Consulted with Hospitalist, who advised us patient has had order placed for transfer to [facility] due to recent MRA Head result with current neurological s ymptoms. -Consistently elevated troponins suggests possibility of a cardiac abnormality and we would advise a stress test when medically stable. Qualifiers: Chest pain type: chest pain due to myocardial ischemia Ischemic chest pain type: other angina pectoris type Qualified Code(s): I20.8 - Other forms of angina pectoris Discussion w patient/family: The assessment and plan as outlined above was discussed with the patient and/or family members who expressed understanding and agreement. All questions were answered. Thank you for involving us in the care of your patient. Please call w ith any questions. History of Present Illness Consult date: 04/28/19 Requesting physician: Gary Noonan Consult reason: troponins trending upward, ongoing mild chest heaviness Chief complaint: chest heaviness History of present illness: Ms. Raines is a 53 year old female presenting with chest heaviness and mildly elevated troponins in context of Takotsubo cardiomyopathy, HTN, CAD. She presented to the ED on 04/27 with retrosternal left-sided chest pain with radiation to jaw and left arm. She waited two hours before coming to ED, instead taking apple cider vinegar twice, and then went to another facility first, where she was given four baby aspirins. She additionally had diaphoresis, left-sided facial numbness, bilateral upper extremity numbness, and rapid heartbeat, but denied lightheadedness, dyspnea, cough, abdominal pain, nausea, vomiting, dysu katharine, leg edema. She was able to walk. In ED, ECG showed sinus tachycardia with HR 101, a single PVC, and slight ST depressions in V5 and V6. Troponin was negative and CBC and BMP were normal. CXR and head CT showed no acute findings. D-dimer was elevataed. CTA showed 4.1 cm descending aortic ectasia but no pulmonary embolism. Over the course of this hospital stay, her troponins have remained slightly elevated beginning on 04/28 at midnight with 0.04 > 0.05 > 0.06 > 0.05 > 0.06 > 0.05. Echocardiogram today showed LVEF 60%, asymmetric septal hypertrophy, no LVOT obstruction, mild LV diastolic dysfunction, moderate mitral annular calcification without mitral stenosis. RV structure and function was normal and there was no evidence of pulmonary HTN. 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 Radiologist suggested possibility of neuro endovascular consult. Patient admits return of chest heaviness today and she admits left-sided headache, left face numbness, difficulty thinking of words when speaking, weakness, left vision disturbances. 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 Past Med Surg Social Fam HX - Past Medical History Medical history: COPD, coronary artery disease, hypertension, myocardial infarction, other Additional medical history: broken heart syndrome Psychiatric history: no psych history - Past Surgical History Surgical History: appendectomy, , orthopedic, other (Carpal tunnel), other (Tonsillectomy, lymph node excision, bladder suspension, cardiac catheterization in 2010 with minimal disease) Additional surgical history: CARDIAC CATH X2, BENIGN TUMOR REMOVED FROM RT GROIN. BLADDER TUCK. CARPAL TUNEL. NASAL BONE RECONSTRUCTION. FX LEG - Social History Smoking Status: Current every day smoker Packs per day: 1/2 Smokeless Tobacco Status: No Alcohol use: none Drug use: none - Family History Mother Hx Family Cardiac Disorders: Yes (HTN) Hx Family Musculoskeletal Disorders: Yes (DM) Medications and Allergies Metoprolol [Lopressor] 25 mg PO HS 08/07/16 [History] Multivitamin [Multi-Day Vitamins] 1 each PO DAILY 08/07/16 [History] amLODIPine [Norvasc] 10 mg PO DAILY 08/07/16 [History] hydroCHLOROthiazide [Hydrochlorothiazide] 25 mg PO DAILY 08/07/16 [History] Albuterol Sulfate [Ventolin Hfa] 2 puff IH BID PRN 08/10/16 [History] Benazepril HCl [Lotensin] 20 mg PO DAILY 04/27/19 [History] Cholecalciferol (D-3) [Vitamin D] 1,000 unit PO DAILY 04/27/19 [History] Allergy/AdvReac Type Severity Reaction Status Date / Time Bee Pollen Allergy Rash Verified 04/22/18 12:37 diphenhydramine Allergy Rash Verified 04/22/18 12:37 [From Benadryl] Erythromycin Base Allergy Rash Verified 04/22/18 12:37 Penicillins Allergy Rash Verified 04/22/18 12:37 All Systems Review: The remainder of the systems were reviewed and are negative - Constitutional Constitutional: headache(s), weakness - EENT Eyes: other (admits intermittent grayness in left eyes, sometimes distorted waves in left eye) - Cardiovascular Cardiovascular: chest pain at rest (chest heaviness), diaphoresis, rapid heart rate, no leg edema - Respiratory Respiratory: cough - Gastrointestinal Gastrointestinal: no constipation, no diarrhea, no nausea - Genitourinary Genitourinary: no dysuria - Musculoskeletal Musculoskeletal: muscle weakness - Neurological Neurological: dizziness, focal weakness (LLE weaker than RLE), numbness, no loss of vision - Hematological/Lymphatic Hematologic/Lymphatic: no easy bleeding, no easy bruising Physical Examination Vital Signs, Last 4 Hours Temp Pulse Resp BP Pulse Ox 04/29/19 07:41 97.9 F 87 16 127/82 95 Other: GENERAL: awake, answers questions appropriately, in no acute distress, patient speech is slowed HENT: atraumatic, normocephalic, moist mucosa EYES: anicteric, clear sclerae, pupils equal and reactive to light CV: regular rate and rhythm, no murmurs RESPIRATORY: diffuse wheezing bilaterally, no rhonchi or rales GI: soft, nontender, nondistended. Normal bowel sounds present EXTREMITIES: peripheral pulses 2+/4, nonedematous, warm, dry, acyanotic Results 04/29/19 00:41 04/29/19 00:41 Lab Results 04/28/19 04/28/19 04/29/19 12:01 18:08 00:41 WBC Hgb Hct Plt Count Sodium Potassium Chloride Carbon Dioxide BUN Creatinine Glucose Calcium Troponin I 0.06 H* 0.05 H* 0.06 H* 04/29/19 04/29/19 04/29/19 00:41 00:41 05:53 WBC 20.5 H D Hgb 14.4 Hct 42.8 Plt Count 272 Sodium 137 Potassium 3.6 Chloride 103 Carbon Dioxide 22 L BUN 22 H Creatinine 0.65 Glucose 282 H Calcium 9.4 Troponin I 0.05 H* Consult Discharge Plan - Plan Referrals: NONE,PCP [Primary Care Provider] - <Namrata Gee - Last Filed: 04/29/19 15:15> Date of Encounter: 04/29/19 - Attending Attestation I examined this patient and my medical decision-making was reviewed with the Resident Physician. I agree with the documented findings, disposition and treatment plan as described except to the extent set forth below. 53-year-old female with history of broken heart syndrome in 2012 status post- nonobstructive disease diagnosed by [facility] at that time. Patient presents with typical angina and progressive crescendo-like pattern with a peak troponin of 0.[address] changes suggestive of ischemia. Patient's recent MRA is concerning in regards to possible CVA. Patient does seem to have an expressive aphasia. Patient likely would benefit from ischemic workup prior to discharge either invasive versus noninvasive. Neurology evaluation and recommendations regards to pursuing invasive risk stratification would be appreciated. Currently patient is asymptomatic and denies any chest pain. Continue medical management at this time including aspirin and heparin if not contraindicated by neurology Assessment and Plan Discussion w patient/family: The assessment and plan as outlined above was discussed with the patient and/or family members who expressed understanding and agreement. All questions were answered. Thank you for involving us in the care of your patient. Please call with any questions. History of Present Illness History of present illness: Ms. Raines is a 53 year old female All Systems Review: The remainder of the systems were reviewed and are negative Physical Examination Vital Signs, Last 4 Hours Temp Pulse Resp BP Pulse Ox 04/29/19 15:05 97.9 F 87 16 147/73 93 Results 04/29/19 00:41 04/29/19 00:41 Lab Results 04/28/19 04/29/19 04/29/19 18:08 00:41 00:41 WBC 20.5 H D Hgb 14.4 Hct 42.8 Plt Count 272 Sodium Potassium Chloride Carbon Dioxide BUN Creatinine Glucose Calcium Troponin I 0.05 H* 0.06 H* 04/29/19 04/29/19 00:41 05:53 WBC Hgb Hct Plt Count Sodium 137 Potassium 3.6 Chloride 103 Carbon Dioxide 22 L BUN 22 H Creatinine 0.65 Glucose 282 H Calcium 9.4 Troponin I 0.05 H*
--- NOTE | 2019-04-29 13:47 | Electrocardiograph Report ---
[place] [id number] Test Date: 2019-04-28 Pat Name: Annie Raines Department: 113 Room: 3B Gender: F [employer]: : 1965 Requested By: [id number] Order Number: [id number] Reading MD: Brenton Arroyo Measurements Intervals [place] Rate: 110 P: 58 MA: 160 QRS: 10 QRSD: 104 T: 72 QT: 348 QTc: 413 Interpretive Statements SINUS TACHYCARDIA WITH FREQUENT VENTRICULAR PREMATURE COMPLEXES NONSPECIFIC T-WAVE ABNORMALITY Electronically Signed On 04-29-2019 13:45:44 EDT by Brenton Arroyo
[2019-04-29] MEDS ORDERED: Ibuprofen 200 MG TABLET PO PRN (13:56)
--- NOTE | 2019-04-29 14:31 | Discharge Summary ---
<Raciel Castillo - Last Filed: 04/29/19 14:53> - NOTES TO OUTPATIENT PROVIDER Notes to Outpatient Provider: Patient was admitted and treated for chest pain rule out, COPD exacerbation, suspected TIA. Chest pain was treated with aspirin, evaluated with serial troponins, EKG, echocardiogram. COPD exacerbati on was treated with aerosols and steroids. TIA was evaluated with ESR, CRP, CT head, MRI. Troponins were elevated at 0.05, echocardiogram negative for acute abnormalities, chest spontaneously resolved. COPD exacerbation improved with treatment. No acute stroke was found, but 3X3 millimeter PICA aneurysm was identified on MRI. Due to symptoms and abnormal findings on MRI patient was transferred to [facility] in stable condition for further evaluation. Date of Encounter: 04/29/19 Time of Encounter: 14:28 - Discharge Diagnosis (1) Chest pain Priority: Primary Status: Acute Qualifiers: Chest pain type: chest pain due to myocardial ischemia Ischemic chest pain type: other angina pectoris type Qualified Code(s): I20.8 - Other forms of angina pectoris (2) COPD (chronic obstructive pulmonary disease) Priority: Primary Status: Acute Qualifiers: COPD type: COPD with acute exacerbation Qualified Code(s): J44.1 - Chronic obstructive pulmonary disease with (acute) exacerbation (3) TIA (transient ischemic attack) Priority: Primary Status: Suspected (4) Takotsubo cardiomyopathy Priority: Secondary Status: Resolved (5) HTN (hypertension) Priority: Secondary Status: Chronic Qualifiers: Hypertension type: essential hypertension Qualified Code(s): I10 - Essential (primary) hypertension Hospital course: Ms. Raines is a 53 year old female with a past medical history of topical sumo cardiomyopathy and hypertension, COPD, coronary artery disease. She presented with chief complaint of substernal chest pain relating to the left, and dyspnea with wheezing, and left facial numbness and difficulty ambulating. CT of the chest and CT of the head and negative in the ER, EKG demonstrated subtle ST changes. At the time of admission her symptoms had improved. She is admitted for chest pain rule out, COPD exacerbation and suspected TIA. Serial troponins were ordered, echocardiogram was ordered and lipid panel was ordered for chest pain rule out. Aerosols, steroids, and azithromycin were ordered for COPD exacerbation. ESR, CRP, MRI were ordered for suspected TIA. Serial troponins were consistently minimally elevated at 0.05+/-0.01, echocardiogram demonstrated preserved EF. COPD symptoms improved with treatment. MRI demonstrated saccular 3X3 millimeter aneurysm adjacent to the origin of the left posterior inferior cerebellar artery. Neuro endovascular consultation was recommended. This was discussed with the patient and transfer to [facility] for evaluation of aneurysm and continued evaluation of chest pain and continued treatment of COPD exacerbation was coordinated. Patient will be transferred in stable condition with continuation of treatment initiated here. Discharge discussed with: patient - Time Spent with Patient Total time spent providing and/or coordinating discharge services: - Discharge Medications Prescriptions: No Action Benazepril HCl [Lotensin] 20 mg PO DAILY Cholecalciferol (D-3) [Vitamin D] 1,000 unit PO DAILY Metoprolol [Lopressor] 25 mg PO HS hydroCHLOROthiazide [Hydrochlorothiazide] 25 mg PO DAILY amLODIPine [Norvasc] 10 mg PO DAILY Multivitamin [Multi-Day Vitamins] 1 each PO DAILY Albuterol Sulfate [Ventolin Hfa] 2 puff IH BID PRN PRN Reason: Shortness Of Breath Home Medications: Metoprolol [Lopressor] 25 mg PO HS 08/07/16 [History] Multivitamin [Multi-Day Vitamins] 1 each PO DAILY 08/07/16 [History] amLODIPine [Norvasc] 10 mg PO DAILY 08/07/16 [History] hydroCHLOROthiazide [Hydrochlorothiazide] 25 mg PO DAILY 08/07/16 [History] Albuterol Sulfate [Ventolin Hfa] 2 puff IH BID PRN 08/10/16 [History] Benazepril HCl [Lotensin] 20 mg PO DAILY 04/27/19 [History] Cholecalciferol (D-3) [Vitamin D] 1,000 unit PO DAILY 04/27/19 [History] Allergies/Adverse Reactions: Allergy/AdvReac Type Severity Reaction Status Date / Time Bee Pollen Allergy Rash Verified 04/22/18 12:37 diphenhydramine Allergy Rash Verified 04/22/18 12:37 [From Benadryl] Erythromycin Base Allergy Rash Verified 04/22/18 12:37 Penicillins Allergy Rash Verified 04/22/18 12:37 Date of admission: 04/27/19 18:34 Primary care physician: PCP NONE Consults: 04/27/19 18:14 Consult to Nurse Navigator [CONS] Routine Comment: COPD 04/28/19 14:45 Consult to Cardiology [CONS] Routine Comment: Consulting Provider: Cardiology Cassia Reason for Consult: troponin trending upwar in context of ongoing mild chest heaviness Time Notified: 14:45 Call Completed: Yes Discharging clinician: Raciel Castillo Anticipated date of discharge: 04/29/19 - Constitutional Vitals: Temp Pulse Resp BP Pulse Ox 97.9 F 97 16 132/90 95 04/29/19 11:07 04/29/19 11:07 04/29/19 11:07 04/29/19 11:07 04/29/19 11:07 General appearance: Present: A&O X 3, pleasant, answers questions appropriately Exam: No acute distress, alert and oriented 3 Pupils equal and reactive to light, extraocular movements intact Cranial nerves II through XII grossly intact, no focal deficits noted Heart in regular rate and rhythm without murmur or gallop auscultated Diffusely diminished breath sounds and diffuse expiratory wheeze Abdomen soft and nontender with normal bowel sounds noted No pedal edema noted, pulses intact peripherally Skin warm and dry - Patient Status Disposition: Transfer Intermediate Care Fac Condition: Good Functional capacity at discharge: independent ambulation Overall status at discharge: patient is progressing back to baseline - Discharge Instructions Follow Up With: NONE,PCP [Primary Care Provider] - - Diet and Activity Activity: as per physical therapy Diet: diabetic diet, low fat, low cholesterol <Mekhi Mishra - Last Filed: 04/29/19 16:52> Date of Encounter: 04/29/19 - Discharge Diagnosis (1) Chest pain Status: Acute Qualifiers: Chest pain type: chest pain due to myocardial ischemia Ischemic chest pain type: other angina pectoris type Qualified Code(s): I20.8 - Other forms of angina pectoris (2) COPD (chronic obstructive pulmonary disease) Status: Acute Qualifiers: COPD type: COPD with acute exacerbation Qualified Code(s): J44.1 - Chronic obstructive pulmonary disease with (acute) exacerbation (3) TIA (transient ischemic attack) Status: Suspected (4) HTN (hypertension) Status: Chronic Qualifiers: Hypertension type: essential hypertension Qualified Code(s): I10 - Essential (primary) hypertension (5) Takotsubo cardiomyopathy Status: Resolved (6) Tobacco abuse Priority: Secondary Status: Chronic (7) Cerebral aneurysm Priority: Secondary Status: Acute Hospital course: Ms. Raines is a 53 year old female - Time Spent with Patient Total time spent providing and/or coordinating discharge services: Date of admission: 04/27/19 18:34 Primary care physician: PCP NONE Consults: 04/27/19 18:14 Consult to Nurse Navigator [CONS] Routine Comment: COPD 04/28/19 14:45 Consult to Cardiology [CONS] Routine Comment: Consulting Provider: Cardiology Cassia Reason for Consult: troponin trending upwar in context of ongoing mild chest heaviness Time Notified: 14:45 Call Completed: Yes - Constitutional Vitals: Temp Pulse Resp BP Pulse Ox 97.9 F 87 18 147/73 95 04/29/19 15:05 04/29/19 15:05 04/29/19 15:19 04/29/19 15:05 04/29/19 15:19 - Attending Attestation I examined this patient and my medical decision-making was reviewed with the Resident Physician on 04/29/19. I agree with the documented findings, disposition and treatment plan as described except to the extent set forth below. Ms Raines has been hospitalized for chest pain and neuro symptoms. She has also been treated for COPD exacerbation. She has been found to have small saccular aneurysm on MRI. Due to her neuro symptoms she was transferred to [facility] in stable condition. Exam alert Comfortable Mucus membranes dry Heart reg Less wheeze Plan D/C to [facility] D/C time 32min
[2019-04-29 15:06] VITALS: BP 147/73
[2019-04-29] MEDS ORDERED: Levalbuterol Neb 0.63 MG/3 ML IH SCH (16:00)
[2019-04-29] MEDS: Azithromycin 500 MG in 0.9 % Sodium Chloride 250 ML IVPB SCH (17:23)
[2019-04-29] MEDS ORDERED: Insulin DETEMIR 100 UNIT/ML X5UNITS SQ SCH (21:00)
--- NOTE | 2019-05-01 11:19 | Electrocardiograph Report ---
[facility] Test Date: 2019-04-27 Pat Name: Annie Raines Department: EXAM25 Room: 3B65 Gender: F [employer]ship: : 1965 Requested By: Salty Haynes Order Number: [id number] Reading MD: Eris Georges Measurements Intervals [place] Rate: 101 P: 44 HI: 175 QRS: -5 QRSD: 101 T: 61 QT: 355 QTc: 461 Interpretive Statements Sinus tachycardia Ventricular premature complex Left atrial enlargement RSR' in Electronically Signed On 05-01-2019 11:18:01 EDT by Eris Georges
== END 2019-04-29 18:37 ==
LOC: EMEROOARM 15:30 → 3BNU 15:30 → SUATTDRO 18:34 → 3BNU 18:48
PROVIDERS: ADMIT Internal Medicine; ATTEND Internal Medicine

== ENCOUNTER 2019-09-14 07:06 | Observation (INO) ==
[2019-09-14 07:38] LABS: Basophils # 0.1 K/mcL (0.0-0.2); Basophils % 0.5 %; Eosinophils # 0.2 K/mcL (0.0-0.6); Eosinophils % 1.8 %; Hematocrit 42.6 % (35.3-44.9); Hemoglobin 14.8 g/dL (11.5-15.4); Immature Granulocytes % 0.6 % (0-4); Lymphocytes # 2.1 K/mcL (0.6-4.6); Lymphocytes % 18.8 %; Mean Corpuscular HGB Conc 34.7 g/dL (31.6-35.5); Mean Corpuscular Hemoglobin 30.1 pg (28.0-33.3); Mean Corpuscular Volume 86.6 fL (83.0-100.0); Mean Platelet Volume 9.8 fL (9.4-12.4); Monocytes # 0.5 K/mcL (0.0-1.3); Monocytes % 4.1 %; Neutrophils # 8.3 K/mcL (1.6-8.9); Platelet Count 319 K/mcL (140-400); Red Blood Count 4.92 M/mcL (3.82-4.97); Red Cell Distribution Width 12.9 % (11.5-14.5); Segmented Neutrophils % 74.2 %; White Blood Count 11.2 K/mcL (4.3-11.1)
[2019-09-14 07:53] LABS: BUN/Creatinine Ratio 21 (6-26); Blood Urea Nitrogen 14 mg/dL (6-20); Calcium 8.8 mg/dL (8.6-10.3); Carbon Dioxide 25 mEq/L (23-29); Chloride 104 mEq/L (98-107); Glucose 216 mg/dL (70-105); Osmolality,Calculated 293 (280-300); Potassium 3.4 mEq/L (3.5-5.1); Sodium 138 mEq/L (136-145); eGFR For African Americans > 60 (> 60); eGFR For Non-African Americans > 60 (> 60)
[2019-09-14 07:55] LABS: Troponin I < 0.03 ng/mL (< 0.04)
[2019-09-14] MEDS ORDERED: Isovue-370 500 ML BOTTLE IVP ONE (08:00)
[2019-09-14 08:40] LABS: Prothrombin Time 11.6 Seconds (9.4-12.1)
[2019-09-14 08:42] LABS: Activated Partial Thrombo Time 33.7 Seconds (26.0-36.0)
[2019-09-14] MEDS ORDERED: Potassium Chloride Elixir 20 MEQ/15 ML UDC PO ONE (09:17)
[2019-09-14] MEDS ORDERED: Naloxone 0.4 MG/ML INJ IVP PRN (09:34)
[2019-09-14] MEDS ORDERED: Ondansetron 4 MG/2 ML VIAL IVP PRN (09:34)
[2019-09-14 10:01] LABS: Bilirubin,Urine Negative (Negative); Blood,Urine Negative (Negative); Clarity,Urine Clear (Clear); Color,Urine Yellow (Yellow); Glucose,Urine (UA) Normal (Normal); Ketones,Urine Negative (Negative); Leukocyte Esterase,Urine Negative (Negative); Nitrite,Urine Negative (Negative); Protein,Urine Negative (Neg-Trace); Specific Gravity,Urine > 1.030 (1.010-1.025); Urobilinogen,Urine Normal (Normal)
[2019-09-14] MEDS ORDERED: Nitroglycerin 0.4 MG TAB.SUBL SL PRN (11:01)
[2019-09-14 13:47] LABS: Adenovirus Not Detected (Not Detect); Bordetella Pertussis Not Detected (Not Detect); Chlamydophila pneumoniae Not Detected (Not Detect); Coronavirus 229E Not Detected (Not Detect); Coronavirus HKU1 Not Detected (Not Detect); Coronavirus NL63 Not Detected (Not Detect); Coronavirus OC43 Not Detected (Not Detect); Human Metapneumovirus Not Detected (Not Detect); Human Rhinovirus/Enterovirus Not Detected (Not Detect); Influenza A Subtype 2009 H1 Not Detected (Not Detect); Influenza B Not Detected (Not Detect); Mycoplasma pneumoniae Not Detected (Not Detect); Parainfluenza Virus 1 Not Detected (Not Detect); Parainfluenza Virus 2 Not Detected (Not Detect); Parainfluenza Virus 3 Not Detected (Not Detect); Parainfluenza Virus 4 Not Detected (Not Detect); Respiratory Syncytial Virus Not Detected (Not Detect)
[2019-09-14] MEDS ORDERED: *HR* Heparin 5,000 UNIT/ML VIAL IVP ONE (17:29)
[2019-09-14] MEDS ORDERED: *HR* Heparin 5,000 UNIT/ML VIAL IVP PRN ×2 (17:29)
[2019-09-14] MEDS ORDERED: Heparin 25,000 UNIT/250 ML D5W 25,000 UNIT/250 ML IV.SOLN IVC SCH (17:30)
[2019-09-14 18:30] LABS: Hematocrit 39.7 % (35.3-44.9); Hemoglobin 13.8 g/dL (11.5-15.4); Mean Corpuscular HGB Conc 34.8 g/dL (31.6-35.5); Mean Corpuscular Hemoglobin 30.5 pg (28.0-33.3); Mean Corpuscular Volume 87.8 fL (83.0-100.0); Platelet Count 293 K/mcL (140-400); Red Blood Count 4.52 M/mcL (3.82-4.97); Red Cell Distribution Width 12.9 % (11.5-14.5); White Blood Count 10.2 K/mcL (4.3-11.1)
[2019-09-14 18:35] LABS: INR 1.1; Prothrombin Time 12.3 Seconds (9.4-12.1)
[2019-09-15 02:01] LABS: Basophils # 0.1 K/mcL (0.0-0.2); Basophils % 0.5 %; Eosinophils # 0.2 K/mcL (0.0-0.6); Eosinophils % 2.3 %; Hematocrit 41.2 % (35.3-44.9); Immature Granulocytes % 0.5 % (0-4); Lymphocytes # 2.8 K/mcL (0.6-4.6); Lymphocytes % 27.3 %; Mean Corpuscular Hemoglobin 29.7 pg (28.0-33.3); Mean Corpuscular Volume 87.5 fL (83.0-100.0); Mean Platelet Volume 9.5 fL (9.4-12.4); Monocytes # 0.5 K/mcL (0.0-1.3); Monocytes % 5.2 %; Neutrophils # 6.5 K/mcL (1.6-8.9); Platelet Count 299 K/mcL (140-400); Red Blood Count 4.71 M/mcL (3.82-4.97); Red Cell Distribution Width 12.9 % (11.5-14.5); Segmented Neutrophils % 64.2 %; White Blood Count 10.1 K/mcL (4.3-11.1)
[2019-09-15 02:24] LABS: BUN/Creatinine Ratio 19 (6-26); Blood Urea Nitrogen 13 mg/dL (6-20); Calcium 8.5 mg/dL (8.6-10.3); Carbon Dioxide 27 mEq/L (23-29); Chloride 106 mEq/L (98-107); Glucose 180 mg/dL (70-105); Magnesium 2.1 mg/dL (1.6-2.6); Osmolality,Calculated 293 (280-300); Phosphorous 2.8 mg/dL (2.7-4.5); Potassium 3.7 mEq/L (3.5-5.1); Sodium 139 mEq/L (136-145); eGFR For African Americans > 60 (> 60); eGFR For Non-African Americans > 60 (> 60)
[2019-09-15] MEDS ORDERED: amLODIPine 5 MG TABLET PO SCH (09:00)
[2019-09-15] MEDS ORDERED: Multivit/Ca/Min/Fe/FA 1 TAB TABLET PO SCH (09:00)
[2019-09-15] MEDS ORDERED: Lisinopril 20 MG TABLET PO SCH (09:00)
[2019-09-15] MEDS ORDERED: Aspirin 81 MG TAB.CHEW PO SCH (09:00)
[2019-09-15 15:13] VITALS: BP 133/80
[2019-09-16] MEDS ORDERED: Isosorbide MONOnitrate (24 HR) 30 MG TAB.ER.24H PO SCH (09:00)
== END 2019-09-15 16:46 | disposition home health service (06) ==
LOC: EMEROOARM 07:06 → 3BNU 07:06 → SUATTDRO 09:38 → 3BNU 09:40
PROVIDERS: ADMIT Student in an Organized Health Care Education/Training Program; ATTEND Internal Medicine

== ENCOUNTER 2021-03-05 15:15 | Inpatient (IN) ==
[2021-03-05] MEDS ORDERED: 0.9 % Sodium Chloride 1,000 ML IV ONE (16:14)
[2021-03-05] MEDS ORDERED: methylPREDNISolone 125 MG/2 ML VIAL IVP ONE (16:14)
[2021-03-05] MEDS ORDERED: levoFLOXacin 500 MG/100 ML 500 MG/100 ML BAG IVPB ONE (16:15)
[2021-03-05 16:45] LABS: ABG Base Excess -2 mEq/L (-2 to 3); ABG HCO3 24 mEq/L (21-27); ABG Oxygen Saturation 98 % (95-98); ABG PCO2 40 mmHg (35-45); ABG PH 7.38 pH Units (7.32-7.45); ABG PO2 103 mmHg (85-104); ABG TCO2 25 mEq/L (20-26)
[2021-03-05 16:53] LABS: Basophils % 0.2 %; Eosinophils % 0.2 %; Hematocrit 45.2 % (35.3-44.9); Hemoglobin 14.6 g/dL (11.5-15.4); Immature Granulocytes % 0.8 % (0-4); Lymphocytes # 0.7 K/mcL (0.6-4.6); Lymphocytes % 5.4 %; Mean Corpuscular HGB Conc 32.3 g/dL (31.6-35.5); Mean Corpuscular Hemoglobin 29.4 pg (28.0-33.3); Mean Corpuscular Volume 90.9 fL (83.0-100.0); Mean Platelet Volume 10.8 fL (9.4-12.4); Monocytes # 0.3 K/mcL (0.0-1.3); Monocytes % 2.5 %; Neutrophils # 10.9 K/mcL (1.6-8.9); Platelet Count 257 K/mcL (140-400); Red Blood Count 4.97 M/mcL (3.82-4.97); Red Cell Distribution Width 13.1 % (11.5-14.5); Segmented Neutrophils % 90.9 %
[2021-03-05 17:01] LABS: Prothrombin Time 12.1 Seconds (9.4-12.1)
[2021-03-05 17:04] LABS: Activated Partial Thrombo Time 23.4 Seconds (26.0-36.0)
[2021-03-05 17:28] LABS: Alanine Aminotransferase 26 Units/L (7-52); Albumin 4.2 g/dL (3.5-5.7); Albumin/Globulin Ratio 1.4 (1.1-2.2); Alkaline Phosphatase 98 Units/L (34-104); Aspartate Amino Transferase 33 Units/L (13-39); BUN/Creatinine Ratio 28 (6-26); Bilirubin,Total 0.5 mg/dL (0.3-1.0); Blood Urea Nitrogen 24 mg/dL (6-20); Calcium 8.7 mg/dL (8.6-10.3); Carbon Dioxide 20 mEq/L (23-29); Chloride 102 mEq/L (98-107); Creatine Kinase 285 Units/L (30-223); Glucose 403 mg/dL (70-105); Lipase 9 Units/L (11-82); Magnesium 1.9 mg/dL (1.6-2.6); Osmolality,Calculated 299 (280-300); Potassium 4.1 mEq/L (3.5-5.1); Sodium 134 mEq/L (136-145); Thyroid Stimulating Hormone 0.254 mcIU/mL (0.340-5.600); Total Protein 7.2 g/dL (6.4-8.9); Troponin I < 0.03 ng/mL (< 0.04); eGFR For African Americans > 60 (> 60); eGFR For Non-African Americans > 60 (> 60)
[2021-03-05 17:31] LABS: Bilirubin,Urine Negative (Negative); Blood,Urine Negative (Negative); Clarity,Urine Clear (Clear); Color,Urine Light-Yellow (Yellow); Glucose,Urine (UA) >=1000 mg/dL (Normal); Ketones,Urine 20 mg/dL (Negative); Leukocyte Esterase,Urine Negative (Negative); Nitrite,Urine Negative (Negative); PH,Urine 5.5 pH Units (5.0-8.0); Protein,Urine Trace mg/dL (Neg-Trace); RBC,Urine 0-3 per hpf (0-3); Specific Gravity,Urine 1.028 (1.010-1.025); Squamous Epithelial Cell,Urine Few per hpf (None-Few); Urobilinogen,Urine Normal (Normal); WBC,Urine 0-3 per hpf (0-3)
[2021-03-05] MEDS ORDERED: Isovue-370 500 ML BOTTLE IVP ONE (17:46)
[2021-03-05] MEDS ORDERED: Insulin Human Regular 10 UNIT in 0.9 % Sodium Chloride 10 ML IV ONE (18:43)
[2021-03-05] MEDS ORDERED: Ipratropium/Albuterol Neb 3 ML IH ONE (18:48)
[2021-03-05] MEDS ORDERED: Melatonin 3 MG TABLET PO PRN (19:53)
[2021-03-05] MEDS ORDERED: Naloxone 0.4 MG/ML INJ IVP PRN (19:53)
[2021-03-05] MEDS ORDERED: *HR* Promethazine 25 MG/ML VIAL IM PRN (19:53)
[2021-03-05] MEDS ORDERED: Ondansetron ODT 4 MG TAB.RAPDIS SL PRN (19:53)
[2021-03-05] MEDS ORDERED: Benzonatate 100 MG CAPSULE PO PRN (19:55)
[2021-03-05] MEDS ORDERED: Ipratropium/Albuterol Neb 3 ML IH PRN (19:56)
[2021-03-05] MEDS ORDERED: *HR* Dextrose 50 % in Water (Vial) 50 ML VIAL IVP PRN (19:57)
[2021-03-05] MEDS ORDERED: D5% in Water 1,000 ML IVC PRN (19:57)
[2021-03-05] MEDS ORDERED: Dextrose Gel 15 GM/37.5 ML TUBE PO PRN ×2 (19:57)
[2021-03-05 20:43] LABS: Adenovirus Not Detected (Not Detect); Bordetella Pertussis Not Detected (Not Detect); Chlamydophila pneumoniae Not Detected (Not Detect); Coronavirus 229E Not Detected (Not Detect); Coronavirus HKU1 Not Detected (Not Detect); Coronavirus NL63 Not Detected (Not Detect); Coronavirus OC43 Not Detected (Not Detect); Human Metapneumovirus Not Detected (Not Detect); Human Rhinovirus/Enterovirus Not Detected (Not Detect); Influenza A Subtype 2009 H1 Not Detected (Not Detect); Influenza B Not Detected (Not Detect); Mycoplasma pneumoniae Not Detected (Not Detect); Parainfluenza Virus 1 Not Detected (Not Detect); Parainfluenza Virus 2 Not Detected (Not Detect); Parainfluenza Virus 3 DETECTED (Not Detect); Parainfluenza Virus 4 Not Detected (Not Detect); Respiratory Syncytial Virus Not Detected (Not Detect); SARS-CoV-2 Not Detected (Not Detect)
[2021-03-05] MEDS: Insulin LISPRO 300 UNITS/3 ML VIAL SUBQ SCH (21:28)
[2021-03-05] MEDS ORDERED: Insulin DETEMIR 100 UNIT/ML X5UNITS SUBQ SCH (21:45)
[2021-03-05] MEDS: Ipratropium/Albuterol Neb 3 ML IH SCH ×2 (21:49→23:37)
[2021-03-05] MEDS: MethylPREDNISolone 40 MG/ML VIAL IVP SCH (23:21)
[2021-03-06 01:45] LABS: Basophils % 0.4 %; Hemoglobin 13.2 g/dL (11.5-15.4); Immature Granulocytes % 1.3 % (0-4); Lymphocytes # 0.8 K/mcL (0.6-4.6); Lymphocytes % 8.2 %; Mean Corpuscular HGB Conc 32.2 g/dL (31.6-35.5); Mean Corpuscular Hemoglobin 29.7 pg (28.0-33.3); Mean Corpuscular Volume 92.3 fL (83.0-100.0); Monocytes # 0.1 K/mcL (0.0-1.3); Neutrophils # 8.6 K/mcL (1.6-8.9); Platelet Count 208 K/mcL (140-400); Red Blood Count 4.44 M/mcL (3.82-4.97); Red Cell Distribution Width 12.8 % (11.5-14.5); Segmented Neutrophils % 89.1 %; White Blood Count 9.7 K/mcL (4.3-11.1)
[2021-03-06 01:50] LABS: INR 1.1; Prothrombin Time 12.7 Seconds (9.4-12.1)
[2021-03-06 02:04] LABS: BUN/Creatinine Ratio 28 (6-26); Blood Urea Nitrogen 19 mg/dL (6-20); Calcium 8.2 mg/dL (8.6-10.3); Carbon Dioxide 22 mEq/L (23-29); Chloride 105 mEq/L (98-107); Chol/HDL Ratio 6.8 (0-4.9); Cholesterol 136 mg/dL (< 200); Glucose 406 mg/dL (70-105); HDL Cholesterol 20 mg/dL (40-59); LDL Cholesterol,Calculated 83 mg/dL (< 100); Magnesium 2.1 mg/dL (1.6-2.6); Osmolality,Calculated 297 (280-300); Potassium 4.5 mEq/L (3.5-5.1); Sodium 134 mEq/L (136-145); Triglycerides 166 mg/dL (< 150); eGFR For African Americans > 60 (> 60); eGFR For Non-African Americans > 60 (> 60)
[2021-03-06] MEDS: Ipratropium/Albuterol Neb 3 ML IH SCH ×6 (03:42→23:02)
[2021-03-06] MEDS: Insulin LISPRO 300 UNITS/3 ML VIAL SUBQ SCH ×7 (09:31→20:46)
[2021-03-06] MEDS: MethylPREDNISolone 40 MG/ML VIAL IVP SCH ×2 (09:32→16:13)
[2021-03-06] MEDS: amLODIPine 5 MG TABLET PO SCH (09:32)
[2021-03-06] MEDS: Aspirin 81 MG TAB.CHEW PO SCH (09:32)
[2021-03-06] MEDS: Azithromycin 250 MG TABLET PO SCH (09:32)
[2021-03-06] MEDS: Insulin DETEMIR 100 UNIT/ML X5UNITS SUBQ SCH ×2 (09:33→20:45)
[2021-03-06] MEDS: Budesonide/Formoterol 160/4.5 1 PUFF INH IH SCH (19:23)
[2021-03-07] MEDS: MethylPREDNISolone 40 MG/ML VIAL IVP SCH ×4 (01:17→22:46)
[2021-03-07] MEDS: Ipratropium/Albuterol Neb 3 ML IH SCH ×6 (03:37→23:08)
[2021-03-07] MEDS: *HR* Enoxaparin 40 MG/0.4 ML SYRINGE SQ SCH (05:23)
[2021-03-07] MEDS: Budesonide/Formoterol 160/4.5 1 PUFF INH IH SCH (07:18)
[2021-03-07] MEDS: Insulin LISPRO 300 UNITS/3 ML VIAL SUBQ SCH ×7 (09:33→22:44)
[2021-03-07] MEDS: Insulin DETEMIR 100 UNIT/ML X5UNITS SUBQ SCH ×2 (09:35→22:45)
[2021-03-07] MEDS: amLODIPine 5 MG TABLET PO SCH (09:35)
[2021-03-07] MEDS: Aspirin 81 MG TAB.CHEW PO SCH (09:36)
[2021-03-07] MEDS: Azithromycin 250 MG TABLET PO SCH (09:36)
[2021-03-08] MEDS: Ipratropium/Albuterol Neb 3 ML IH SCH ×4 (03:53→15:28)
[2021-03-08] MEDS: *HR* Enoxaparin 40 MG/0.4 ML SYRINGE SQ SCH (05:28)
[2021-03-08 06:15] VITALS: TEMP 97.7
[2021-03-08] MEDS: amLODIPine 5 MG TABLET PO SCH (08:55)
[2021-03-08] MEDS: Azithromycin 250 MG TABLET PO SCH (08:55)
[2021-03-08] MEDS: Insulin LISPRO 300 UNITS/3 ML VIAL SUBQ SCH ×6 (08:56→17:36)
[2021-03-08] MEDS: MethylPREDNISolone 40 MG/ML VIAL IVP SCH (08:56)
[2021-03-08] MEDS: Aspirin 81 MG TAB.CHEW PO SCH (08:56)
[2021-03-08] MEDS ORDERED: lisinopriL 20 MG TABLET PO SCH (09:00)
[2021-03-08] MEDS ORDERED: Insulin DETEMIR 100 UNIT/ML X5UNITS SUBQ SCH (09:00)
[2021-03-08 10:54] VITALS: PULSE 100
[2021-03-08 15:56] VITALS: BP 121/80; O2SAT 95
== END 2021-03-08 18:56 | disposition home or self-care (01) | DRG 140 ==
LOC: EMEROOARM 15:15 → 3ANU 15:15 → SUATTDRO 19:44 → 3ANU 20:00
PROVIDERS: ADMIT Internal Medicine; ATTEND Internal Medicine